=== PATIENT | female | born 1975 | race Caucasian/White ===

== ENCOUNTER → 2017-12-02 | Outpatient (CLI) | payer BC ==
[2016-05-26 16:09] VITALS: BP 118/78
--- NOTE | 2017-12-02 15:21 | MRI ---
MRI OF THE LUMBAR SPINE WITHOUT IV CONTRAST CLINICAL INDICATION: Low back pain TECHNIQUE: Pre-contrast sagittal T1-, T2-, and T2-w fat-saturated images, and axial T1- and T2-w imag es of the lumbar spine. COMPARISON: CT abdomen pelvis 05/26/2016 FINDINGS: For purposes of this dictation, it is assumed that there are 5 [id number], lumbar-type vertebrae , and the most caudal fully segmented lumbar vertebra is labeled L5. The lumbar spine demonstrates normal alignment. Vertebral bodies are normal in height. There is a nor mal marrow signal pattern. Intervertebral discs are normal in height and signal intensity. The conus medullaris terminates at a normal level and the nerve roots of the cauda equina appear normal. Questi onable right ovarian cystic structure that is only partially visualized on sagittal images. Evaluation of the individual levels demonstrates: L1-2: Normal L2-3: Mild circumferential disc bulge without central stenosis. L3-4: Mild circumferential disc bulge without central stenosis. L4-5: Mild circumferential disc bulge without central stenosis. L5-S1: Normal IMPRESSION: 1. Other than mild multilevel degenerative disc disease , essentially normal examination of the lumba r spine. 2. Questionable right ovarian cystic structure which is partially imaged on sagittal images alone. If patient has pelvic symptoms a pelvic MRI could be obtained however this may be physiologic in this p atient of premenopausal age. Reported By:
== END | disposition home or self-care (01) ==
LOC: RAD 13:54
PROVIDERS: ATTEND Internal Medicine
DX: M51.26 Other intervertebral disc displacement, lumbar region (principal); G57.80 Other specified mononeuropathies of unspecified lower limb
CPT/HCPCS: 72148